=== PATIENT | male | born 1990 | race Two or more races ===

== ENCOUNTER 2024-05-03 21:20 | Emergency (ER) | payer MEDICAID ==
[~2024-05-03] VITALS: Ht 167.6 cm; Wt 61.2 kg
[2024-05-03 22:31] VITALS: TEMP 97.6
[2024-05-03] MEDS ORDERED: IV NS 0.9% 250 ML IV ONE (22:51)
[2024-05-03] MEDS ORDERED: CT SWABBABLE VALVE TRANS SET 1 EA INFUS.SET MC ONE (22:51)
[2024-05-03] MEDS ORDERED: IOHEXOL-300 100 ML VIAL IV ONE (22:51)
[2024-05-03] MEDS ORDERED: CLINDAMYCIN 900 MG/6 ML VIAL ONE (23:13)
[2024-05-03 23:17] LABS: BASOPHILS % (AUTO) 0.5 % (0.0-2.0); EOSINOPHILS # (AUTO) 0.1 K/uL (0.0-0.7); EOSINOPHILS % (AUTO) 1.8 % (0.0-6.0); HEMATOCRIT 42 % (39-51); HEMOGLOBIN 15.3 g/dL (13.5-17.5); LYMPHOCYTES # (AUTO) 1.3 K/uL (0.8-4.8); LYMPHOCYTES % (AUTO) 19.1 % (20.0-44.0); MEAN CORPUSCULAR HEMOGLOBIN 35 PG (26.0-33.0); MEAN CORPUSCULAR HGB CONC 37 g/dl (31.0-36.0); MEAN CORPUSCULAR VOLUME 94 fL (80-96); MONOCYTES # (AUTO) 0.6 K/uL (0.1-1.30); MONOCYTES % (AUTO) 9.6 % (2.0-12.0); NEUTROPHILS # (AUTO) 4.6 K/uL (1.8-8.9); PLATELET COUNT (AUTO) 212 K/uL (150-450); RED BLOOD CELL COUNT(AUTO) 4.44 MIL/uL (4.5-6.0); RED CELL DISTRIBUTION WIDTH 12.6 % (11.5-15.0); WHITE BLOOD COUNT (AUTO) 6.7 K/uL (4.3-11.0)
[2024-05-03] MEDS: CLINDAMYCIN PHOSPHATE IV 600 MG/4 ML VIAL IV ONE (23:20)
[2024-05-03 23:31] LABS: ALBUMIN 4.3 g/dL (3.4-5.0); BILIRUBIN,TOTAL 0.3 mg/dL (0.2-1.0); CALCIUM, SERUM 9.3 mg/dL (8.5-10.1); CREATININE 0.9 mg/dL (0.6-1.3); POTASSIUM 3.6 mmol/L (3.5-5.1); TOTAL PROTEIN, SERUM 7.6 g/dL (6.4-8.2)
[2024-05-04] MEDS ORDERED: CLIN150C16 PO (00:47)
[2024-05-04 01:35] VITALS: BP 118/74; O2SAT 98
== END 2024-05-04 01:36 | disposition home or self-care (01) ==
LOC: ER 21:24
DX: L03.213 Periorbital cellulitis (principal); Z60.2 Problems related to living alone
CPT/HCPCS: 99285; 96365; 70481; 85025; 87040 ×2; 36415; 80053; J3490; J7050; Q9967